=== PATIENT | male | born 1965 | race Caucasian/White ===

== ENCOUNTER → 2018-05-22 16:19 | Emergency (ER) | payer SELFPAY ==
--- NOTE | 2018-05-22 18:06 | RAD ---
INDICATION: Cough COMPARISON: None TECHNIQUE: PA and lateral views of the chest were obtained. FINDINGS: The heart and mediastinum are normal in size and contour. The lungs are grossly clear. There is no evidence of large pleural effusion. Visualized bones are normal for the patient's age. There is no radiographic evidence of free air beneath the diaphragm IMPRESSION: No radiographic evidence of acute cardiopulmonary disease.
--- NOTE | 2018-05-22 18:32 | ED ---
Throat Pain/Nasal Congestion - HPI Summary HPI Summary: 52-year-old male presents to sore throat and sinus congestion for the past 2 days. He also admits to cough. He states that having subjective fevers. No chest pain or shortness breath. No headache. He denies any bowel pain nausea vomiting diarrhea. Hasn't taken anything for her symptoms. Is a smoker. no muscle aches. no one else is scik. has history of asthma but has not used inhaler in a long time. - History of Current Complaint Chief Complaint: EDThroatPain Time Seen by Provider: 05/22/18 17:34 PMH/Surg Hx/FS Hx/Imm Hx Endocrine/Hematology History: Denies: Hx Anticoagulant Therapy Respiratory History: Reports: Hx Asthma Infectious Disease History: No Infectious Disease History: Denies: Traveled Outside the [place] in Last 30 Days - Family History Known Family History: Positive: Respiratory Disease - Social History Alcohol Use: Rare Substance Use Type: Reports: None Smoking Status (MU): Current Every Day Smoker Review of Systems Positive: Fever Positive: Sore Throat, Nasal Discharge Negative: Chest Pain Positive: Cough. Negative: Shortness Of Breath All Other Systems Reviewed And Are Negative: Yes Physical Exam Triage Information Reviewed: Yes Vital Signs On Initial Exam: Initial Vitals Temp Pulse Resp BP Pulse Ox 98.9 F 72 18 136/87 98 05/22/18 16:24 05/22/18 16:24 05/22/18 16:24 05/22/18 16:24 05/22/18 16:24 Vital Signs Reviewed: Yes Appearance: Positive: Well-Appearing Skin: Positive: Warm, Dry Head/Face: Positive: Normal Head/Face Inspection Eyes: Positive: Normal, EOMI, CHRISTIANO, Conjunctiva Clear ENT: Positive: Normal ENT inspection, Pharyngeal erythema, Nasal congestion, Uvula midline, Other - soft palate symmetric. Negative: Tonsillar swelling, Tonsillar exudate, Trismus, Muffled voice, Sinus tenderness Respiratory/Lung Sounds: Positive: Clear to Auscultation, Breath Sounds Present Cardiovascular: Positive: Normal, RRR Musculoskeletal: Positive: Normal Neurological: Positive: Normal Psychiatric: Positive: Normal Diagnostics - Vital Signs Vital Signs Temp Pulse Resp BP Pulse Ox 05/22/18 16:24 98.9 F 72 18 136/87 98 - Laboratory Lab Statement: Any lab studies that have been ordered have been reviewed, and results considered in the medical decision making process. - Radiology chest Radiology Interpretation Completed By: Radiologist Summary of Radiographic Findings: NAD EENT Course/Dx - Course Course Of Treatment: 52-year-old male presents to sore throat and sinus congestion for the past 2 days. He also admits to cough. He states that having subjective fevers. No chest pain or shortness breath. No headache. He denies any bowel pain nausea vomiting diarrhea. Hasn't taken anything for her symptoms. Is a smoker. On exam lungs clear to auscultation. As congestion present and nontender over sinuses. Pharynx erythematous. Uvula midline. Palate symmetric. strept neg. chest xray normal. will treat with tessalon. patient understand and agrees with plan. - Differential Diagnoses Differential Diagnoses: Pharyngitis, Sinusitis, URI/Bronchitis - Diagnoses Provider Diagnoses: Upper respiratory infection Discharge - Sign-Out/Discharge Documenting (check all that apply): Patient Departure - Discharge Plan Condition: Good Disposition: HOME Prescriptions: Benzonatate CAP* [Tessalon 100 MG CAP*] 100 mg PO TID #21 cap Patient Education Materials: Upper Respiratory Infection (ED) Forms: *Work Release Referrals: No Primary Care Phys,NOPCP [Primary Care Provider] - Additional Instructions: use tessalon three times a day for cough Use saline in the nose for nasal congestion Use humidifier or place warm bowls of water around the room for cough Take Tylenol or ibuprofen for pain every 6 hours Return to ED if develop any new or worsening symptoms - Billing Disposition and Condition Condition: GOOD Disposition: Home
[2018-05-22 19:18] VITALS: BP 141/74
== END | disposition home or self-care (01) ==
LOC: ED 16:19
DX: J06.9 Acute upper respiratory infection, unspecified (principal); F17.200 Nicotine dependence, unspecified, uncomplicated
CPT/HCPCS: 71046; 87651; 99282

== ENCOUNTER 2018-10-31 15:08 | Emergency (ER) | payer SELFPAY ==
[2018-10-31 18:18] LABS: ABS Basophils 0 10^3/ul (0-0.2); ABS Eosinophils 0.1 10^3/ul (0-0.6); ABS Lymphocytes 2.5 10^3/ul (1.0-4.8); ABS Monocytes 0.4 10^3/ul (0-0.8); ABS Neutrophils 2.9 10^3/ul (1.5-7.7); ABS Nucleated RBC 0 10^3/ul; Eosinophil % 1.4 %; Hematocrit 45 % (36-46); Hemoglobin 15.3 g/dL (14.0-18.0); Lymphocyte % 42.1 %; Mean Corpuscular HGB Conc 34 g/dL (31-36); Mean Corpuscular Hemoglobin 33 pg (27-31); Mean Corpuscular Volume 97 fL (80-94); Mean Platelet Volume 8.9 fL (7.4-10.4); Nucleated Red Blood Cells % 0; Platelet Count 117 10^3/uL (150-450); Red Blood Count 4.58 10^6 /uL (4.18-5.48); Red Cell Distribution Width 13 % (10.5-15)
[2018-10-31] MEDS ORDERED: Ondansetron INJ* 2 MG/ML VIAL IV ONE (18:26)
[2018-10-31] MEDS ORDERED: NS 0.9% 1000 ML** 1,000 ML IV ONE (18:26)
[2018-10-31] MEDS ORDERED: Pantoprazole IV* 40 MG IV ONE (18:26)
[2018-10-31 18:37] LABS: Albumin/Globulin Ratio 1.2 (1-3); C Reactive Protein 1.6 mg/L (<8.01); Calcium 9.6 mg/dL (8.6-10.3); EGFR African American 143.3 (>60); EGFR Non-African American 118.4 (>60); Globulin 3.4 g/dL (2-4); Potassium 3.9 mmol/L (3.5-5.0); Total Bilirubin 1.1 mg/dL (0.2-1.0); Total Protein 7.4 g/dL (6.4-8.9)
--- NOTE | 2018-10-31 20:21 | ED ---
GI/ HPI - HPI Summary HPI Summary: 53-year-old male presents with epigastric pain for the past week. He states that he has been having nausea but no vomiting. States it is a burning type pain. He has not tried doing for his symptoms. Denies any blood in his stool. No dark tarry stools. Denies any urinary symptoms. No chest pain or shortness breath. Pain does not radiate anywhere. No previous belly surgeries. Has no medical conditions. Denies any drinking alcohol or ibuprofen use. - History of Current Complaint Chief Complaint: EDAbdPain Time Seen by Provider: 10/31/18 18:12 Stated Complaint: ABD PAIN PER PT Pain Intensity: 4 - Allergy/Home Medications Allergies/Adverse Reactions: Allergies Allergy/AdvReac Type Severity Reaction Status Date / Time Bleach (Sodium Hypochlorite) Allergy Hives Verified 10/31/18 15:18 Penicillins Allergy Hives Verified 10/31/18 15:18 PMH/Surg Hx/FS Hx/Imm Hx Endocrine/Hematology History: Denies: Hx Anticoagulant Therapy Respiratory History: Reports: Hx Asthma Infectious Disease History: No Infectious Disease History: Denies: Traveled Outside the [place] in Last 30 Days - Family History Known Family History: Positive: Respiratory Disease - Social History Alcohol Use: Rare Substance Use Type: Reports: None Smoking Status (MU): Current Every Day Smoker Review of Systems Negative: Fever Negative: Chest Pain Negative: Shortness Of Breath Positive: Abdominal Pain All Other Systems Reviewed And Are Negative: Yes Physical Exam Triage Information Reviewed: Yes Vital Signs On Initial Exam: Initial Vitals Temp Pulse Resp BP Pulse Ox 98.1 F 62 18 125/82 97 10/31/18 15:15 10/31/18 15:15 10/31/18 15:15 10/31/18 15:15 10/31/18 15:15 Vital Signs Reviewed: Yes Appearance: Positive: Well-Appearing Skin: Positive: Warm, Dry Head/Face: Positive: Normal Head/Face Inspection Eyes: Positive: Normal, Conjunctiva Clear ENT: Positive: Pharynx normal Respiratory/Lung Sounds: Positive: Clear to Auscultation, Breath Sounds Present Cardiovascular: Positive: Normal, RRR Abdomen Description: Positive: Soft, Other: - tenderness epigastric Bowel Sounds: Positive: Present Musculoskeletal: Positive: Normal Neurological: Positive: Normal Psychiatric: Positive: Normal Diagnostics - Vital Signs Vital Signs Temp Pulse Resp BP Pulse Ox 10/31/18 19:13 57 122/73 99 10/31/18 19:00 60 98 10/31/18 18:43 56 135/80 97 10/31/18 17:15 98.4 F 70 16 129/78 95 10/31/18 15:15 98.1 F 62 18 125/82 97 - Laboratory Lab Results: Lab Results 10/31/18 10/31/18 10/31/18 Range/Units 18:08 18:08 18:08 WBC 6.0 (3.5-10.8) 10^3/uL RBC 4.58 (4.18-5.48) 10^6 /uL Hgb 15.3 (14.0-18.0) g/dL Hct 45 (36-46) % MCV 97 H (80-94) fL MCH 33 H (27-31) pg MCHC 34 (31-36) g/dL RDW 13 (10.5-15) % Plt Count 117 L (150-450) 10^3/uL MPV 8.9 (7.4-10.4) fL Neut % (Auto) 48.6 % Lymph % (Auto) 42.1 % Crowley % (Auto) 7.4 % Eos % (Auto) 1.4 % Baso % (Auto) 0.5 % Absolute Neuts (auto) 2.9 (1.5-7.7) 10^3/ul Absolute Lymphs (auto) 2.5 (1.0-4.8) 10^3/ul Absolute Monos (auto) 0.4 (0-0.8) 10^3/ul Absolute Eos (auto) 0.1 (0-0.6) 10^3/ul Absolute Basos (auto) 0 (0-0.2) 10^3/ul Absolute Nucleated RBC 0 10^3/ul Nucleated RBC % 0 Sodium 139 (135-145) mmol/L Potassium 3.9 (3.5-5.0) mmol/L Chloride 106 (101-111) mmol/L Carbon Dioxide 27 (22-32) mmol/L Anion Gap 6 (2-11) mmol/L BUN 7 (6-24) mg/dL Creatinine 0.70 (0.67-1.17) mg/dL Est GFR ( Amer) 143.3 (>60) Est GFR (Non-Af Amer) 118.4 (>60) BUN/Creatinine Ratio 10.0 (8-20) Glucose 104 H (70-100) mg/dL Lactic Acid 1.2 (0.5-2.0) mmol/L Calcium 9.6 (8.6-10.3) mg/dL Total Bilirubin 1.10 H (0.2-1.0) mg/dL AST 37 (13-39) U/L ALT 42 (7-52) U/L Alkaline Phosphatase 82 (34-104) U/L C-Reactive Protein 1.60 (<8.01) mg/L Total Protein 7.4 (6.4-8.9) g/dL Albumin 4.0 (3.2-5.2) g/dL Globulin 3.4 (2-4) g/dL Albumin/Globulin Ratio 1.2 (1-3) Amylase 65 (29-103) U/L Lipase 23 (11.0-82.0) U/L Result Diagrams: 10/31/18 18:08 10/31/18 18:08 Lab Statement: Any lab studies that have been ordered have been reviewed, and results considered in the medical decision making process. - Ultrasound No standard instances Ultrasound Interpretation Completed By: Radiologist Summary of Ultrasound Findings: IMPRESSION: No cholelithiasis but there is gallbladder wall thickening measuring nearly 5. mm and a small volume of pericholecystic fluid, however the technologist did. not document a positive sonographic Akbar sign and therefore not specific for. acute cholecystitis. Re-Evaluation - Re-Evaluation First Eval Re-Evaluation Time: 20:21 Change: Improved Comment: feelingbetter, pain resolved GIGU Course/Dx - Course Course Of Treatment: 53-year-old male presents with epigastric pain for the past week. He states that he has been having nausea but no vomiting. States it is a burning type pain. He has not tried doing for his symptoms. Denies any blood in his stool. No dark tarry stools. Denies any urinary symptoms. No chest pain or shortness breath. Pain does not radiate anywhere. No previous belly surgeries. Has no medical conditions. Denies any drinking alcohol or ibuprofen use. On exam has mild tenderness in epigastric region. No fever. White blood count normal. CRP normal. Liver function normal. Ultrasound shows wall thickening but no stones. With presentation and no fever and no white count unlikely that has cholecystitis. Patient improved with Protonix and likely is a gastritis. We will discharge with omeprazole and Carafate. Told to follow with GI no improvement. Patient understands and agrees with plan. - Diagnoses Differential Diagnoses - Male: Cholelithiasis, Esophagitis/Gastritis, Gastroenteritis (Viral) Provider Diagnoses: Epigastric pain Discharge - Sign-Out/Discharge Documenting (check all that apply): Patient Departure Patient Received Moderate/Deep Sedation with Procedure: No - Discharge Plan Condition: Good Disposition: HOME Prescriptions: Al Hydrox/Mg Hydrox/Simet LIQ* [Maalox Plus*] 30 ml PO Q6H PRN #1 udc PRN Reason: Dyspepsia Omeprazole 20 mg PO DAILY #14 tablet. Ondansetron ODT TAB* [Zofran 4 MG Odt TAB*] 4 mg PO Q6H PRN #20 tab.odt PRN Reason: Nausea Sucralfate TAB* [Carafate*] 1 gm PO QID #56 tab Patient Education Materials: Epigastric Pain (ED) Forms: *Work Release Referrals: Tommy Mejia MD [Medical Doctor] - Additional Instructions: Take omeprazole once a day Take Maalox 30ml every 6 hours for epigastric pain as needed take carafate four times a day take zofran every 6 hours as needed for nausea Avoid acidic foods Elevated head of bed Stay upright for at least 30 mins after eating Follow up with GI Return to ED if develop fever, or any new or worsening symptoms - Billing Disposition and Condition Condition: GOOD Disposition: Home
[2018-10-31 21:03] VITALS: BP 128/68
== END 2018-10-31 21:02 | disposition home or self-care (01) ==
LOC: ED 15:08
DX: R10.13 Epigastric pain (principal); F17.200 Nicotine dependence, unspecified, uncomplicated; J45.909 Unspecified asthma, uncomplicated
CPT/HCPCS: 36415; 76705; 80053; 82150; 83605; 83690; 85025; 86140; 96361; 96374; 96375; 99283; J2405